=== PATIENT | female | born 1960 | race Caucasian/White ===

== ENCOUNTER → 2025-01-09 09:57 | Outpatient (REF) | payer OTHER, SELFPAY | LOC: HWRAD 09:57 | PROVIDERS: ATTENDING PHYSICIAN Nurse Practitioner | DX: R58 Hemorrhage, not elsewhere classified (principal) | CPT/HCPCS: 76882 ==

== ENCOUNTER → 2025-02-21 10:08 | Outpatient (REF) | payer OTHER, SELFPAY | LOC: HWRCS 10:08 | PROVIDERS: ATTENDING PHYSICIAN Internal Medicine Cardiovascular Disease; FAMILY PHYSICIAN Hospitalist | DX: Z95.2 Presence of prosthetic heart valve (principal); I48.0 Paroxysmal atrial fibrillation; R42 Dizziness and giddiness; I25.10 Atherosclerotic heart disease of native coronary artery without angina pectoris | CPT/HCPCS: 93306 ==